=== PATIENT | male | born 1970 | race Caucasian/White ===

== ENCOUNTER 2017-01-29 19:25 | Emergency (ER) | payer BC, OTHER ==
[~2017-01-29] VITALS: Ht 188 cm; Wt 143.3 kg
[2017-01-29 19:28] VITALS: TEMP 36.7; O2SAT 96; Ht 188 cm; Wt 143.3 kg
--- NOTE | 2017-01-29 19:52 | EMERGENCY ROOM VISIT NOTE ---
History Report prepared by Edita: Sherrie Page Under the Supervision of: Dr. Laith Scanlon M.D. 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 The patient currently rates the pain as a 4/10 in severity. The patient states the pain feels like a build of of gas in his abdomen. He states that he has been seen for this pain was diagnosed with acid reflux. He states that the pain will occasional build up to the point where it hurts to touch his epigastric abdomen. The patient states that he also has some back pain. The patient states that occasionally milk decreases his pain. He states that the over the counter medication he took did not help his pain. The patient denies any black or bloody stool. The patient states that he has not history of heart or kidney problems. The patient states that about 1 month ago he quit chewing smokeless tobacco. 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 Review of Systems All systems have been listed, reviewed, and are negative other than those previously mentioned. Please see Additional Medical History Sheet. Past Medical & Surgical Medical Problems: (1) Acid reflux Family History Patient reports no known family medical history. Social History Smoking Status: Light Tobacco Smoker Marital Status: single Occupation Status: employed Current/Historical Medications Scheduled Pantoprazole (Protonix), 40 MG PO DAILY Ranitidine Hcl (Zantac), 150 MG PO BID Scheduled PRN Guaifenesin (Robitussin), 1 DOSE PO DIRECTED PRN for COLD SYMPTOMS Oxycodone/Acetaminophen 5MG/325MG (Percocet 5MG/325MG), 1 TABLET PO Q4H PRN for Pain Allergies Coded Allergies: Acetaminophen (Verified Allergy, Mild, GI SYMPTOMS, 01/29/17) Hydrocodone (Verified Allergy, Mild, GI SYMPTOMS, 01/29/17) Latex (Verified Allergy, Unknown, RASH, 01/29/17) Physical Exam Vital Signs Date Time Temp Pulse Resp B/P Pulse Ox O2 Delivery O2 Flow Rate FiO2 01/29/17 21:33 81 17 156/104 Room Air 01/29/17 20:27 88 01/29/17 19:28 36.7 101 20 170/100 96 Room Air Physical Exam GENERAL: Patient awake, alert, oriented x 3. Patient follows commands. Patient does not appear toxic. Patient is adequately hydrated and well- nourished. SKIN: No erythema, pallor, cyanosis or rash HEENT: Normal head, pupils equal, reactive to light and accommodation. LUNGS: Clear to auscultation. No wheezes, no rales, no rhonchi. HEART: No murmurs. No gallops. No rubs ABDOMEN: obese, soft epigastric tenderness, no rebound no guarding. EXTREMITIES: No signs of trauma or infection. NEUROLOGIC: Cranial nerves II-XII within normal limits. No gross motor sensory function deficits. Medical Decision & Procedures ER Provider Diagnostic Interpretation: X ray results are stated below per my interpretation and the radiologist's interpretation. CHEST 2 VIEWS ROUTINE HISTORY: epigastric pain COMPARISON: None. FINDINGS: The lungs are clear. Cardiac silhouette is normal in size. No pleural effusions. No pneumothorax. IMPRESSION: No acute process. Electronically signed by: Jer Velázquez M.D. 01/29/2017 8:47 PM Dictated Date/Time: 01/29/2017 8:46 PM Laboratory Results 01/29/17 19:40 01/29/17 19:40 Test 01/29/17 19:40 Red Blood Count 5.85 M/uL (4.7-6.1) Mean Corpuscular Volume 93.2 fL (80-100) Mean Corpuscular Hemoglobin 32.0 pg (25-34) Mean Corpuscular Hemoglobin Concent 34.3 g/dl (32-36) RDW Standard Deviation 45.1 fL (36.4-46.3) RDW Coefficient of Variation 13.0 % (11.5-14.5) Mean Platelet Volume 9.8 fL (7.4-10.4) Anion Gap 9.0 mmol/L (3-11) Est Creatinine Clear Calc Drug Dose 114.8 ml/min Estimated GFR () 83.0 Estimated GFR (Non- 71.6 BUN/Creatinine Ratio 11.1 (10-20) Calcium Level 8.8 mg/dl (8.5-10.1) Total Bilirubin 0.5 mg/dl (0.2-1) Aspartate Amino Transf (AST/SGOT) 31 U/L (15-37) Alanine Aminotransferase (ALT/SGPT) 64 U/L (12-78) Alkaline Phosphatase 117 U/L (45-117) Troponin I < 0.015 ng/ml (0-0.045) Total Protein 8.0 gm/dl (6.4-8.2) Albumin 4.2 gm/dl (3.4-5.0) Globulin 3.8 gm/dl (2.5-4.0) Albumin/Globulin Ratio 1.1 (0.9-2) Lipase 276 U/L (73-393) Laboratory results as stated above per my review. Medications Administered Medications (Trade) Dose Ordered Sig/Ismael Route Start Time Stop Time Status Last Admin Dose Admin Al Hydroxide/Mg Hydroxide (Maalox Susp) 30 ml STK-MED ONCE .ROUTE 01/29/17 20:11 01/29/17 20:12 DC 01/29/17 20:15 30 ML Lidocaine HCl (Viscous Lidocaine 2% Soln) 20 ml STK-MED ONCE .ROUTE 01/29/17 20:11 01/29/17 20:12 DC 01/29/17 20:15 20 ML Ranitidine HCl (zANTac TAB) 150 mg NOW ONCE PO 01/29/17 21:30 01/29/17 21:31 DC 01/29/17 21:30 150 MG ECG Indication: abdominal pain Rate (beats per minute): 83 Rhythm: normal sinus Findings: no acute ischemic change, no ectopy ED Course 1936: Past medical records reviewed. The patient was evaluated in room A3. A complete history and physical examination was performed. 1999: Ordered GI Cocktail 24 ml PO. 2107: Upon reevaluation, the patient appeared to have improvement of his symptoms but states that he feels like the pain will begin again. I discussed today's findings with him. He verbalized agreement of the treatment plan. The patient was discharged home. 2129: Ordered Ranitidine HCl 150 mg PO. Medical Decision I considered multiple diagnoses including myocardial infarction, chest wall pain , pericarditis, myocarditis, aortic emergencies, pulmonary embolism, congestive heart failure, GI causes, and other significant cardiopulmonary disorders, and gastritis, peptic/gastric ulcer disease, pancreatitis and gallbladder disease. Multiple labs, EKG and imaging were obtained. Please see above. The patient has no black or bloody stools. He does have epigastric tenderness which may be related to gastritis or an early peptic/gastric ulcer. The patient does drink alcohol but has been abstaining lately. He rarely uses NSAIDs. The patient smokes a cigar. Patient may also have GERD. He did get some initial relief with GI cocktail. The patient is currently on Protonix. I will add Zantac. The patient will see if he is feeling better next few days if not he may need endoscopy. Patient does not have any evidence of a cardiac cause for his pain. Impression Primary Impression: Gastritis Scribe Attestation The scribe's documentation has been prepared under my direction and personally reviewed by me in its entirety. I confirm that the note above accurately reflects all work, treatment, procedures, and medical decision making performed by me. Departure Information Dispostion Home / Self-Care Prescriptions Ranitidine Hcl (ZANTAC) 150 Mg Tab 150 MG PO BID, #30 TAB Prov: Laith Scanlon M.D. 01/29/17 Forms Call Back Authorization, HOME CARE DOCUMENTATION FORM, IMPORTANT VISIT INFORMATION Patient Instructions [facility] Additional Instructions Continue Protonix as prescribed. 150 mg of Zantac twice daily. You may use Mylanta, Maalox or Gaviscon in between the above medications. No alcohol. Follow-up with your family physician within the next 5 days.
[2017-01-29] MEDS ORDERED: RBTUDL5 PO (19:55)
[2017-01-29] MEDS ORDERED: PANT40TA PO (19:55)
[2017-01-29] MEDS ORDERED: OXYC-57 PO (19:55)
[2017-01-29] MEDS ORDERED: GI COCKTAIL PO ONE (20:00)
[2017-01-29 20:02] LABS: HEMATOCRIT 54.5 % (42-52); MEAN CELL VOLUME 93.2 fL (80-100); MEAN CORPUSCULAR HGB CONC 34.3 g/dl (32-36); MEAN PLATELET VOLUME 9.8 fL (7.4-10.4); PLATELET COUNT 223 K/uL (130-400); RED BLOOD COUNT 5.85 M/uL (4.7-6.1); WHITE BLOOD COUNT 8.34 K/uL (4.8-10.8)
[2017-01-29] MEDS ORDERED: LIDOCAINE HCL 2% VISC SOLN 20 ML UDC ONE (20:11)
[2017-01-29] MEDS ORDERED: ALUMINUM/MAGNESIUM SUSP 30 ML UDC ONE (20:11)
[2017-01-29 20:18] LABS: ALT/SGPT 64 U/L (12-78); AST/SGOT 31 U/L (15-37); BLOOD UREA NITROGEN 13 mg/dl (7-18); BUN/CREATININE RATIO 11.1 (10-20); CALCIUM 8.8 mg/dl (8.5-10.1); CARBON DIOXIDE 28 mmol/L (21-32); CHLORIDE 104 mmol/L (98-107); GLUCOSE 101 mg/dl (70-99); POTASSIUM 3.6 mmol/L (3.5-5.1); SODIUM 141 mmol/L (136-145)
[2017-01-29 20:23] LABS: ALB/GLOB RATIO 1.1 (0.9-2); ALKALINE PHOSPHATASE 117 U/L (45-117)
--- NOTE | 2017-01-29 20:49 | DIAGNOSTIC IMAGING REPORT ---
CHEST 2 VIEWS ROUTINE HISTORY: epigastric pain COMPARISON: None. FINDINGS: The lungs are clear. Cardiac silhouette is normal in size. No pleural effusions. No pneumothorax. IMPRESSION: No acute process. Electronically signed by: Jer Velázquez M.D. 01/29/2017 8:47 PM Dictated Date/Time: 01/29/2017 8:46 PM
[2017-01-29] MEDS ORDERED: RANI150T3 PO (21:24)
[2017-01-29] MEDS ORDERED: RANITIDINE HCL 150 MG TAB PO ONE (21:30)
[2017-01-29 21:33] VITALS: BP 156/104; PULSE 81
== END 2017-01-29 21:40 | disposition home or self-care (01) ==
LOC: C.EDB 19:26 → C.EDA 21:40
DX: K29.70 Gastritis, unspecified, without bleeding (principal); K21.9 Gastro-esophageal reflux disease without esophagitis; F17.200 Nicotine dependence, unspecified, uncomplicated; Z79.899 Other long term (current) drug therapy; Z88.6 Allergy status to analgesic agent; Z91.040 Latex allergy status

== ENCOUNTER 2021-10-27 07:48 | Inpatient (IN) ==
--- NOTE | 2021-10-27 08:28 | Emergency Department Note ---
Impression & Plan Lumbar disc herniation with radiculopathy ED Provider Note CHIEF COMPLAINT: Right low back pain radiating into the right leg x2 months HISTORY OF PRESENT ILLNESS: Patient is a 51-year-old male with past medical history significant for hypertension, anxiety, hypothyroidism, GERD, migraine disorder, among other chronic medical problems who presents emergency department for evaluation of increasing right leg weakness, numbness and tingling after suffering a back injury at work in early September. Patient injured his back getting out of the vehicle around 09/09/2021. 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 He apparently has a disc herniation at the L2 level. He was seen by Dr. Li, who suggested he have an evaluation by pain management, he saw Dr. Elmore last week on 10/21/2021, and it was not felt that any type of epidural steroid injection would be beneficial. He did have follow-up with Dr. Li last week, who felt like he was "borderline" for surgery. Patient was instructed on worrisome signs or symptoms which should cause him to present to the emergency department. Patient continues to note increasing weakness in the right leg, primarily in the right quad. He continues to have a constant, aching pain in the midline of the back, more on the right that he rates an 8/10. Acutely new since this morning, the patient states that he has a constant, burning sensation in the anterior right thigh, and numbness that extends from the right knee through the entire right thigh into the buttocks. Numbness is worsening and the burning sensation is new. He is dragging the right leg when he walks. He feels like he might fall. He also has noted a fleeting, sharp, stabbing pain in the groin/genital region, but no saddle anesthesias or bowel or bladder incontinence. He did not contact Dr. Li's office prior to coming to the emergency department today. REVIEW OF SYSTEMS: Review of systems as per HPI. All other systems reviewed were negative. 10 systems reviewed. PMH: Electronic medical records are reviewed and summarized as above/below. See Problem List. Patient is not vaccinated against influenza or Covid. He had the Covid illness in September 2021. SOCIAL HISTORY: Patient lives at home. Employed. [employer]. PHYSICAL EXAM: Vital Signs: Reviewed Nurse's notes. CONSTITUTIONAL: Patient is an obese, fairly well-appearing 51-year-old male who is awake and alert and seated on the edge of the gurney in mild distress due to his stated complaint. There is moderate discomfort with position changes. CARDIOVASCULAR: Regular rate and rhythm. Peripheral pulses easily palpable. RESPIRATORY: Breath sounds equal and clear to auscultation ABDOMEN: Bowel sounds are present. Abdomen is soft, nontender and nondistended. INTEGUMENTARY: No lesions or rash, normal skin turgor. LYMPH: No lymphadenopathy. SPINE: Examination of the patient's back does not demonstrate any ecchymosis, abrasions or outward signs of trauma. No erythema, increased warmth or induration. Patient has midline discomfort to palpation over the low lumbar spine, primarily on the right. There is no pain over the SI joint or the sciatic notch. He has increased pain with range of motion including rotation and flexion. EXTREMITIES: Leg lengths are symmetrical. Negative logroll bilaterally. 5/5 strength dorsi-flexion and plantar flexion of the great toes and ankles bilaterally. Right knee and hip flexion and extension 3/5, compared to 5/5 on the left. Positive right straight leg raise testing. Right patellar and Achilles DTRs are 1+ on the right, compared to 2+ on the left. equal and symm etrical bilaterally. Distal pulses are easily palpable. Diminished sensation to light touch over the right thigh. Calves are soft and nontender bilaterally. EMERGENCY DEPARTMENT COURSE: The patient was seen and assessed as above. Old records were reviewed. There is a pain management consultation with Dr. Elmore that it is in the system that I am able to review, noting lumbar HNP. Patient notes increasing right lower extremity weakness and paresthesia. He was directed by his spine surgeon to come to the emergency department should he develop any worrisome symptoms. I did contact Dr. Li, who is familiar with the patient and agrees that he likely needs urgent surgical intervention. He will admit the patient to his service with plans for the OR tomorrow. Patient was made aware of this. Preoperative laboratory testing including CBC, CMP and urinalysis and a Covid test were obtained, reviewed and are unremarkable. Covid test is negative. Please refer to admission H&P and orders for further information. Differential diagnoses entertained include disc herniation with radiculopathy, acute cord compression, cauda equina syndrome, epidural abscess, epidural hematoma, among others. Past Med/Surg History Medical History Acid reflux resolved off of omeprazole Anxiety Benign essential hypertension Cervical disc disease Fatty liver History of kidney stones Hypothyroidism previously on levothyroxine- since discontinued and labs remain euthyroid, pcp monitoring Migraine Morbid obesity Stomach ulcer Surgical History History of appendectomy History of cholecystectomy History of colonoscopy History of esophagogastroduodenoscopy (EGD) History of tonsillectomy S/P arthroscopy of right shoulder Status post cervical discectomy Full ROM Status post ORIF of fracture of ankle left Family History Father Cancer, Onset Age: 63 prostate cancer Coronary heart disease, Onset Age: 78 stents placed Diabetes Grandfather (Paternal) Cancer Diabetes Uncle Cancer, Onset Age: 60 prostate cancer Uncle , leukemia age 38 Cancer, Onset Age: 37 Leukemia Grandfather (Maternal) Diabetes Lung cancer, Onset Age: 76 Grandmother (Maternal) Diabetes Other Heart disease Hypertension Prostate cancer Stroke Denies family history of Deep vein thrombosis Dyslipidemia Depression Pulmonary embolism Lung disease Social History Smoking Status: Current every day smoker Tobacco Type: E-cigarettes / Vaping Second Hand Exposure: No; Hx Alcohol Use: Yes Alcohol type: hard liquor Hx Substance Use: No Preferred Language: Kiswahili Communication Ability: Effective Pot Lining Supervisor Required: No Beliefs That Will Affect Care: None Current Living Situation: Family Current Living Situation Comment: LIVES WITH SON IN AN APARTMENT current occupational status: employed 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[employer] Feels Safe at Home: Yes Allergies Allergies Allergy/AdvReac Type Severity Reaction Status Date / Time latex Allergy Mild RASH Verified 10/27/21 09:49 hydrocodone AdvReac Mild GI SYMPTOMS Verified 10/27/21 09:49 Home Meds Home Medications Medication Instructions Recorded Confirmed olmesartan 40 mg tablet 40 mg PO QAM 10/27/21 10/27/21 Results & Data (ED) Vital Signs Vital Signs - 24 hr 10/27/21 07:52 Temperature 36.0 C L Temperature Source Temporal Artery Scan Pulse Rate 90 Respiratory Rate 20 Respiratory Effort / Characteristics Non-Labored Spontaneous Respiratory Depth Normal Respiratory Pattern Regular Blood Pressure 147/103 H Blood Pressure Mean 117 Pulse Oximetry 97 Oxygen Delivery Method Room Air Sepsis Recent Fever Within 48 Hours No Sepsis New/Unexplained Change in Mental Status No Sepsis Action Taken by Nursing No Action Required Home Medications Current Medication List: was personally reviewed by me Laboratory Data Attestation: I reviewed the patient's lab results. Result diagrams: 10/27/21 Unknown 10/27/21 Unknown Lab Results 10/27/21 10/27/21 10/27/21 Range/Units 10:19 Unknown Unknown WBC 6.44 (4.8-10.8) K/uL RBC 5.11 (4.7-6.1) M/uL Hgb 16.5 (14.0-18.0) g/dL Hct 50.1 (42-52) % MCV 98.0 (80-100) fL MCH 32.3 (25-34) pg MCHC 32.9 (32-36) g/dL RDW Std Deviation 53.1 H (36.4-46.3) fL RDW Coeff of Rose Marie 14.7 H (11.5-14.5) % Plt Count 282 (130-400) K/uL MPV 9.5 (7.4-10.4) fL Immature Gran % (Auto) 0.3 % Neut % (Auto) 66.1 % Lymph % (Auto) 25.2 % [place] % (Auto) 6.7 % Eos % (Auto) 1.2 % Baso % (Auto) 0.5 % Neut # (Auto) 4.26 (1.4-6.5) K/uL Lymph # (Auto) 1.62 (1.2-3.4) K/uL [place] # (Auto) 0.43 (0.11-0.59) K/uL Eos # (Auto) 0.08 (0-0.5) K/uL Baso # (Auto) 0.03 (0-0.2) K/uL Immature Gran # (Auto) 0.02 (0.00-0.02) K/uL Sodium 138 (136-145) mmol/L Potassium (3.5-5.1) mmol/L Chloride 102 (98-107) mmol/L Carbon Dioxide 28 (21-32) mmol/L Anion Gap 8 (3-11) BUN 14 (6-23) mg/dl Creatinine 0.90 (0.6-1.4) mg/dl Est Cr Clr Drug Dosing 151.9 ml/min Est GFR ( Amer) 113.4 ml/min Est GFR (Non-Af Amer) 97.9 ml/min BUN/Creatinine Ratio 15.6 (10-20) Glucose 120 H (70-99(Fasting)) mg/dl Calcium 8.7 (8.5-10.1) mg/dl Total Bilirubin 0.6 (0.2-1.0) mg/dl AST (13-39) U/L ALT 44 (7-52) U/L Alkaline Phosphatase 78 (34-104) U/L Total Protein 7.3 (6.0-8.3) gm/dl Albumin 4.1 (3.4-5.0) gm/dl Globulin 3.2 (2.5-4.0) gm/dl Albumin/Globulin Ratio 1.3 (0.9-2) Urine Color Yellow Urine Appearance Clear (Clear) Urine pH 5.5 (4.5-7.5) Ur Specific [place] 1.023 (1.000-1.030) Urine Protein Negative (Negative) Urine Glucose (UA) Negative (Negative) Urine Ketones Trace H (Negative) Urine Blood Negative (Negative) Urine Nitrite Negative (Negative) Urine Bilirubin Negative (Negative) Urine Urobilinogen Negative (Negative) Ur Leukocyte Esterase Negative (Negative) SARS-CoV-2, RNA, NAAT (NEGATIVE) 10/27/21 Range/Units Unknown WBC (4.8-10.8) K/uL RBC (4.7-6.1) M/uL Hgb (14.0-18.0) g/dL Hct (42-52) % MCV (80-100) fL MCH (25-34) pg MCHC (32-36) g/dL RDW Std Deviation (36.4-46.3) fL RDW Coeff of Rose Marie (11.5-14.5) % Plt Count (130-400) K/uL MPV (7.4-10.4) fL Immature Gran % (Auto) % Neut % (Auto) % Lymph % (Auto) % [place] % (Auto) % Eos % (Auto) % Baso % (Auto) % Neut # (Auto) (1.4-6.5) K/uL Lymph # (Auto) (1.2-3.4) K/uL [place] # (Auto) (0.11-0.59) K/uL Eos # (Auto) (0-0.5) K/uL Baso # (Auto) (0-0.2) K/uL Immature Gran # (Auto) (0.00-0.02) K/uL Sodium (136-145) mmol/L Potassium (3.5-5.1) mmol/L Chloride (98-107) mmol/L Carbon Dioxide (21-32) mmol/L Anion Gap (3-11) BUN (6-23) mg/dl Creatinine (0.6-1.4) mg/dl Est Cr Clr Drug Dosing ml/min Est GFR ( Amer) ml/min Est GFR (Non-Af Amer) ml/min BUN/Creatinine Ratio (10-20) Glucose (70-99(Fasting)) mg/dl Calcium (8.5-10.1) mg/dl Total Bilirubin (0.2-1.0) mg/dl AST (13-39) U/L ALT (7-52) U/L Alkaline Phosphatase (34-104) U/L Total Protein (6.0-8.3) gm/dl Albumin (3.4-5.0) gm/dl Globulin (2.5-4.0) gm/dl Albumin/Globulin Ratio (0.9-2) Urine Color Urine Appearance (Clear) Urine pH (4.5-7.5) Ur Specific [place] (1.000-1.030) Urine Protein (Negative) Urine Glucose (UA) (Negative) Urine Ketones (Negative) Urine Blood (Negative) Urine Nitrite (Negative) Urine Bilirubin (Negative) Urine Urobilinogen (Negative) Ur Leukocyte Esterase (Negative) SARS-CoV-2, RNA, NAAT NEGATIVE (NEGATIVE) Discharge Plan Visit Data Chief Complaint: Leg Injury/Pain Stated Complaint: LOWER BACK PAIN, RT THIGH PAIN AND NUMBNESS ED Provider: Roe Rogers ED Midlevel Provider: Heriberto Crain Discharge Problem: Lumbar disc herniation with radiculopathy Patient Disposition: Being Evaluated by Surgeon Forms Stand Alone Forms: [facility] Prescriptions Prescriptions: No Action olmesartan 40 mg tablet 40 mg PO QAM RF: 0 Referrals Referrals: Loren Holm CRNP [Primary Care Provider] -
[2021-10-27 09:03] LABS: Basophils # (auto) 0.03 K/uL (0-0.2); Basophils % (auto) 0.5 %; Eosinophils # (auto) 0.08 K/uL (0-0.5); Eosinophils % (auto) 1.2 %; Hematocrit (blood only) 50.1 % (42-52); Hemoglobin 16.5 g/dL (14.0-18.0); Immature Granulocytes # (auto) 0.02 K/uL (0.00-0.02); Immature Granulocytes % (auto) 0.3 %; Lymphocytes # (auto) 1.62 K/uL (1.2-3.4); Lymphocytes % (auto) 25.2 %; Mean Corpuscular Hemoglobin 32.3 pg (25-34); Mean Corpuscular Hgb Conc 32.9 g/dL (32-36); Mean Platelet Volume 9.5 fL (7.4-10.4); Monocytes # (auto) 0.43 K/uL (0.11-0.59); Monocytes % (auto) 6.7 %; Neutrophils # (auto) 4.26 K/uL (1.4-6.5); Neutrophils % (auto) 66.1 %; Platelet Count 282 K/uL (130-400); RDW Coefficient of Variation 14.7 % (11.5-14.5); RDW Standard Deviation 53.1 fL (36.4-46.3); Red Blood Count 5.11 M/uL (4.7-6.1); White Blood Count 6.44 K/uL (4.8-10.8)
--- NOTE | 2021-10-27 09:24 | History & Physical Report ---
Date of Service October 27, 2021 Assessment & Plan (1) Lumbar disc herniation with radiculopathy: Plan: Assessment foraminal disc herniation with progressive neuro deficit L2-L3. Plan at this time he is failed to improve despite conservative measures his progressive neuro deficit and recommending urgent lumbar decompression fusion L2-L3. He would require complete facetectomy to adequately decompress the exiting nerve root and safely retrieve the disc herniation. This would render him unstable subsequently requiring stabilization. Risk benefits pros cons alternatives were outlined in detail. We will make him n.p.o. after midnight plan for surgery tomorrow. History of Present Illness Chief Complaint: Right leg pain and weakness Primary Care Provider: GARY Gallo This is a 51-year-old male well-known to me that is noting a significant steady decline in his ability to ambulate and function of the right quadricep. He was seen my office several weeks ago diagnosed with a far lateral foraminal disc herniation L2-L3. We did attempt a consultation with interventional pain management. However in light of the disc herniation and foraminal compression he was felt not to be a candidate for injection therapy. A course of oral steroids provided very little relief. He now notes continued progressive deficit to the right quadricep with difficulty ambulating ascending and descending stairs. There is concomitant severe radiculopathy in association with this. Left lower extremity is asymptomatic. Allergies Allergy/AdvReac Type Severity Reaction Status Date / Time latex Allergy Mild RASH Verified 06/24/21 09:59 hydrocodone AdvReac Mild GI SYMPTOMS Verified 06/24/21 09:59 Home Medications Medication Instructions Recorded Confirmed Type olmesartan 40 mg tablet 40 mg PO DAILY #90 tab 06/12/21 06/29/21 Rx folic acid 400 mcg tablet 0.4 mg PO DAILY #90 tab 06/29/21 06/29/21 Rx meclizine 25 mg tablet 25 mg PO TID #30 tab 06/29/21 06/29/21 Rx nicotine 21 mg/24 hr daily 1 patch TRANSDERMAL Q24H #28 ea 06/29/21 06/29/21 Rx transdermal patch pantoprazole 20 mg tablet,delayed 20 mg PO DAILY #90 tab 06/29/21 06/29/21 Rx release (Protonix) thiamine HCl (vitamin B1) 100 mg 100 mg PO DAILY #90 tab 06/29/21 06/29/21 Rx tablet albuterol sulfate 90 mcg/actuation 2 puff INHALATION Q6H PRN #8.5 g 09/21/21 09/21/21 Rx aerosol inhaler (Ventolin HFA) prednisone 10 mg tablet See Rx Instructions .ROUTE 09/21/21 09/21/21 Rx .COMPLEX #21 tab Past Med/Surg History Medical History Acid reflux resolved off of omeprazole Anxiety Benign essential hypertension Cervical disc disease Fatty liver History of kidney stones Hypothyroidism previously on levothyroxine- since discontinued and labs remain euthyroid, pcp monitoring Migraine Morbid obesity Stomach ulcer Surgical History History of appendectomy History of cholecystectomy History of colonoscopy History of esophagogastroduodenoscopy (EGD) History of tonsillectomy S/P arthroscopy of right shoulder Status post cervical discectomy Full ROM Status post ORIF of fracture of ankle left Family History Father Cancer, Onset Age: 63 prostate cancer Coronary heart disease, Onset Age: 78 stents placed Diabetes Grandfather (Paternal) Cancer Diabetes Uncle Cancer, Onset Age: 60 prostate cancer Uncle , leukemia age 38 Cancer, Onset Age: 37 Leukemia Grandfather (Maternal) Diabetes Lung cancer, Onset Age: 76 Grandmother (Maternal) Diabetes Other Heart disease Hypertension Prostate cancer Stroke Denies family history of Deep vein thrombosis Dyslipidemia Depression Pulmonary embolism Lung disease Social History Smoking Status: Current every day smoker Tobacco Type: E-cigarettes / Vaping Second Hand Exposure: No; Hx Alcohol Use: Yes Alcohol type: hard liquor Hx Substance Use: No Preferred Language: Indian Communication Ability: Effective Switch Coupler Required: No Beliefs That Will Affect Care: None Current Living Situation: Family Current Living Situation Comment: LIVES WITH SON IN AN APARTMENT current occupational status: employed 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 He is able to ambulate with assistance. He does demonstrate a 4-/5 right quadriceps compared to 5 or 5 on the left. There is sensory deficits on the right compared to left. Deep tendon reflexes are absent. He has plus out of 5 bilateral plantar flexion dorsiflexion. Results & Data ([facility]) Vital Signs (Past 12 Hours) Vital Signs Temp Pulse Resp BP Pulse Ox 10/27/21 07:52 36.0 C L 90 20 147/103 H 97 Code Status & VTE Plan VTE Prophylaxis Plan VTE Prophylaxis will be ordered: Yes
[2021-10-27 10:12] LABS: Albumin Globulin Ratio 1.3 (0.9-2); Albumin Level 4.1 gm/dl (3.4-5.0); BUN Creatinine Ratio 15.6 (10-20); Bilirubin,Total 0.6 mg/dl (0.2-1.0); Calcium 8.7 mg/dl (8.5-10.1); Creatinine Clr Calc Pharmacy 151.9 ml/min; Est GFR (African American) 113.4 ml/min; Est GFR (Non-African American) 97.9 ml/min; Globulin 3.2 gm/dl (2.5-4.0); Total Protein 7.3 gm/dl (6.0-8.3)
[2021-10-27 10:29] LABS: Appearance Urine Clear (Clear); Bilirubin Urine Negative (Negative); Blood Urine Negative (Negative); Color Urine Yellow; Glucose Urine UA Negative (Negative); Ketones Urine Trace (Negative); Leukocyte Esterase Urine Negative (Negative); Nitrite Urine Negative (Negative); Protein Urine Negative (Negative); Specific Gravity Urine 1.023 (1.000-1.030); Urobilinogen Urine Negative (Negative); pH Urine 5.5 (4.5-7.5)
[2021-10-27] MEDS ORDERED: oxyCODONE HCL IR 5 MG TAB (IMMEDIATE RELEASE) PO PRN (12:37)
[2021-10-27] MEDS ORDERED: ONDANSETRON 4 MG OD TAB PO PRN (12:37)
[2021-10-27] MEDS ORDERED: LORazepam 0.5 MG TAB PO PRN (12:37)
[2021-10-27] MEDS ORDERED: ONDANSETRON INJ 2 MG/ML 2 ML VIAL IV PRN (12:37)
[2021-10-27] MEDS ORDERED: ACETAMINOPHEN 500 MG TAB PO PRN (12:37)
[2021-10-27] MEDS ORDERED: NALOXONE HCL 0.4 MG/1 ML VIAL/CARP IV PRN (12:37)
[2021-10-27] MEDS ORDERED: HYDROmorphone INJ 0.5 MG/0.5 ML SYR IV PRN (12:37)
[2021-10-27] MEDS ORDERED: PROMETHAZINE HCL 12.5 MG in SODIUM CHLORIDE 0.9% 50 ML IV PRN (12:37)
[2021-10-27] MEDS ORDERED: LORazepam 0.5 MG/1 ML VIAL IV PRN (12:37)
[2021-10-27] MEDS ORDERED: ACETAMINOPHEN 1,000 MG/100 ML VIAL IV PRN (12:37)
[2021-10-27] MEDS ORDERED: MoRPHine SULFATE 2 MG/ML CARP IV PRN (12:37)
[2021-10-27] MEDS ORDERED: ALBUTEROL HFA 8 GM INHALER INH PRN (12:37)
[2021-10-27] MEDS ORDERED: METOCLOPRAMIDE HCL INJ 5 MG/ML 2 ML VIAL IV PRN (12:37)
--- NOTE | 2021-10-27 13:16 | Hospitalist Consultation ---
Date of Consultation October 27, 2021 Assessment & Plan (1) Acid reflux: Reports as mild, is not on medication at home - Will add Famotidine 10mg IV daily until postoperative course completed - If he will remain on steroid post operative- continue (2) Migraine: No abortive medicines at (3) Benign essential hypertension: Controlled on Olmesartan - ECHO 04/21- EF 60-65% No RWMA, normal valves- reported - Low cardiac risk - Hold ARB follow renal function (4) Chronic fatigue: Chronic ftigue in morning and throughout day - did not follow up on sleep study as above - Follow through postoperative course- consider adding CPAP if occluding airway with sedation (5) Chewing tobacco nicotine dependence: Nicotene patch (6) Lumbar disc herniation with radiculopathy: Pain medication per Primary service - Rescue Narcan ordered and apporpriate - Pre-operative care per primary service - Chemoprophylaxis per primary service - IVF and diet per primary service - ABX per primary service (7) Anxiety: Ativan ordered- IV and PO available - transition to PO only tomorrow unless he is nauseated and unable to take PO History of Present Illness Reason for Consultation: Medical management Requesting Physician: Dr. Li Attending Physician: Isma Li, History of Present Illness 51 YOMJ with past medical history of: HTN, Obesity, Anxiety, Chronic fatigue, dyspnea, chronic back pain with radiculopathy, GERD, and Migraine. Patient comes in today for progression of his back pain with increase in radicular symptoms with weakness. He is planned of lumbar decompression and fusion to be completed by Dr. Li tomorrow. He is NPO after midnight. Hospitalist service was consulted for medical management/evaluation preoperative. 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 His numbness and weakness progressed this morning to where he had trouble putting weight on his leg and getting it to function to help him walk. Currently his pain is controlled. Medically patient carries diagnosis of HTN, no history of CVA or chest pain. He reports himself as pretty active, as he is up and down in equipment all day and then appears to do some other general justyn work to where he is lifting and moving tools and supplies. He is also able to go up and down 2 or more flights of stairs without any complaints of chest pain or dyspnea. The patient had an episode of dyspnea over the summer that was worked up by his PCP to include an ECHO, ECG and plan for sleep study. His dyspnea self resolved, and he did not follow up with pulmonary sleep study secondary to cost as well as he was seeing many physicians during that time. He does still endorse morning time fatigue, but denies any waking up from snoring or dyspneic, and he does not fall asleep or doze off when sitting. His had recent colonoscopy performed as well. He has elevated liver enzymes and fatty liver disease, will repeat his liver enzymes in the morning as AST was not run secondary to hemolysis but his ALT, AlkPo4, and bili were normal. He does not carry the diagnosis of DM. He has had multiple operations and exposure to anesthetics as well with no complications reported or prolonged/severe nausea or vomiting afterwards. He does endorse smokeless tobacco use and has nicotene patch ordered. Alcohol use is reported as minimal 1-2 drinks a week. He has gone multiple days without a drink and reports he has never had any symptoms of withdrawl or need to drink alcohol. Recommendations: Hold ARB, can likely restart 24 hours post-op with stable renal function, NPO with LR at 75ml per hour already ordered, SCDS already ordered for VTE prophylaxis - ECG now for evaluation - CXR pre-operative evaluation - Hold ARB in morning of surgery - Labs in am - CPAP if needed postoperative phase with increase sedation- notify hospitalist team if low SPo2/occlusion/or apneas in PACU His revised Dhiraj cardiac risk for estimated risk of adverse outcome with non- cardiac surgery is LOW at 0.9% rate of MT, pulmonary edema, Vfib/cardiac arrest or heart block- History and Physical performed by primary orthopaedics and reviewed. Allergies Allergy/AdvReac Type Severity Reaction Status Date / Time latex Allergy Mild RASH Verified 10/27/21 09:49 hydrocodone AdvReac Mild GI SYMPTOMS Verified 10/27/21 09:49 Home Medications Medication Instructions Recorded Confirmed Type olmesartan 40 mg tablet 40 mg PO QAM 10/27/21 10/27/21 History Patient History Medical History Acid reflux resolved off of omeprazole Anxiety Benign essential hypertension Cervical disc disease Fatty liver History of kidney stones Hypothyroidism previously on levothyroxine- since discontinued and labs remain euthyroid, pcp monitoring Migraine Morbid obesity Stomach ulcer Surgical History History of appendectomy History of cholecystectomy History of colonoscopy History of esophagogastroduodenoscopy (EGD) History of tonsillectomy S/P arthroscopy of right shoulder Status post cervical discectomy Full ROM Status post ORIF of fracture of ankle left Family History Father Cancer, Onset Age: 63 prostate cancer Coronary heart disease, Onset Age: 78 stents placed Diabetes Grandfather (Paternal) Cancer Diabetes Uncle Cancer, Onset Age: 60 prostate cancer Uncle , leukemia age 38 Cancer, Onset Age: 37 Leukemia Grandfather (Maternal) Diabetes Lung cancer, Onset Age: 76 Grandmother (Maternal) Diabetes Other Heart disease Hypertension Prostate cancer Stroke Denies family history of Deep vein thrombosis Dyslipidemia Depression Pulmonary embolism Lung disease Social History Smoking Status: Never smoker Tobacco Type: E-cigarettes / Vaping Second Hand Exposure: No; Do You Dip or Chew Tobacco: Yes; Tobacco Cessation Education Requested by Patient: No Hx Alcohol Use: Yes Alcohol type: hard liquor Hx Substance Use: No Preferred Language: Pakistani Communication Ability: Effective 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 Beliefs That Will Affect Care: None Current Living Situation: Alone Current Living Situation Comment: LIVES WITH SON IN AN APARTMENT current occupational status: employed 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 [employer] Other Information That Helps Us Care for You: No Feels Safe at Home: Yes Safety Concerns: Feels Safe At This Time Assistive Devices: None Review of Systems Review of Systems: REVIEW OF SYSTEMS: Constitutional: No fever, sweats or chills Eyes: No diplopia, no worsening or blurred vision ENT: normal hearing, no trouble swallowing Respiratory: No cough, sputum, dyspnea at rest or on exertion Cardiovascular: No chest pain, tightness or palpitations Abdomen: No pain, nausea, vomiting, diarrhea or constipation Musculoskeletal: (+) back and leg joint pain, NO calf pain, swelling Neurologic: (+) weakness, numbness/tingling, or balance problems Psychiatric: No anxiety or depression Skin: No rash or itch Physical Exam Physical Exam: PHYSICAL EXAM: General: awake, alert, no apparent distress Head: Normocephalic, atraumatic ENT: PERRL, EOMI, no pharyngeal exudate, mucous membranes moist Neuro: AAO x 3, speech clear and appropriate, strength intact bilaterally 5/5 upper extremity and left lower extremity, 4/5 on right lower extremity, normal reflexes and able to fire quadriceps. Burning pain to right lateral leg that extends to calf, numbness at right glut and upper thigh, but sensation is present throughout all dermatomes. Chest: equal rise and fall of the chest, no accessory muscle use, no heaves or thrills, Clear to auscultation, on room air, Cardiac: Regular rate and rhythm, S1S2 skin warm dry, cap refill <3 seconds, peripheral pulses +2 no JVD, no murmur, no JVD, no edema GI: NABS x 4 quadrants, soft, nontender to palpation, no rebound, guarding or tenderness : Spontaneously voiding, no pain, no CVA tenderness, Extremities: Normal inspection, no peripheral edema or erythema, calfs nontender to palpation Psych: Normal mood and affect Skin: no rash or erythema Results & Data Results & Data ([facility]) Vital Signs (Past 12 Hours) Vital Signs Temp Pulse Pulse Pulse Resp BP BP 10/27/21 12:41 36.8 C 88 16 137/84 10/27/21 11:47 74 18 123/83 10/27/21 11:00 123/83 10/27/21 09:49 75 18 154/97 H 10/27/21 07:52 36.0 C L 90 20 147/103 H Pulse Ox 10/27/21 12:41 95 10/27/21 11:47 98 10/27/21 11:00 10/27/21 09:49 98 10/27/21 07:52 97 Laboratory Results Abnormal lab results 10/27/21 10/27/21 10/27/21 Range/Units 10:19 Unknown Unknown RDW Std Deviation 53.1 H (36.4-46.3) fL RDW Coeff of Rose Marie 14.7 H (11.5-14.5) % Glucose 120 H (70-99(Fasting)) mg/dl Urine Ketones Trace H (Negative) Diagnostic Findings Chest X-Ray 10/27/21 13:15 XR chest 1V portable HISTORY: 51 years-old Male pre-operative evaluation preoperative exam. No acute chest complaints. COMPARISON: 02/26/2020 TECHNIQUE: Portable AP view of the chest FINDINGS: Cardiomediastinal and hilar silhouettes are unchanged. There is no pneumothorax, pleural effusion, airspace consolidation or overt pulmonary edema. Bones of the chest appear grossly intact. Cervical spinal fusion hardware. IMPRESSION: No acute process. ACT 112: Negative or not required by law. The above report was generated using voice recognition software. It may contain grammatical, syntax or spelling errors. Electronically signed by: Chato Donald M.D. 10/27/2021 1:36 PM ECG Additional Comments: Ordered- Pending PG Care Time/CCT Total # of Minutes Spent Total Time Spent with Patient: Total time spent is greater than 50% in coordination of care (as documented) at patient's floor/unit and/or counseling patient: Coding Level of Care Code 89093 Office/OBS Consult Lvl 3 Diagnoses Acid reflux K21.9 Migraine G43.909 Benign essential hypertension I10 Chronic fatigue R53.82 Chewing tobacco nicotine dependence F17.220 Lumbar disc herniation with radiculopathy M51.16 Anxiety F41.9
--- NOTE | 2021-10-27 13:37 | XRay Report ---
XR chest 1V portable HISTORY: 51 years-old Male pre-operative evaluation preoperative exam. No acute chest complaints. COMPARISON: 02/26/2020 TECHNIQUE: Portable AP view of the chest FINDINGS: Cardiomediastinal and hilar silhouettes are unchanged. There is no pneumothorax, pleural effusion, ai rspace consolidation or overt pulmonary edema. Bones of the chest appear grossly intact. Cervical spi nal fusion hardware. IMPRESSION: No acute process. ACT 112: Negative or not required by law. The above report was generated using voice recognition software. It may contain grammatical, syntax o r spelling errors. Electronically signed by: Chato Donald M.D. 10/27/2021 1:36 PM
[2021-10-27] MEDS: LACTATED RINGER'S 1,000 ML IV SCH (13:48)
[2021-10-27] MEDS ORDERED: FAMOTIDINE 10 MG in SYRINGE 3 ML IV SCH (14:00)
[2021-10-27] MEDS ORDERED: MECLIZINE HCL 25MG HOME PACK PO SCH (14:00)
[2021-10-27] MEDS: NICOTINE 21 MG/24 HR TDSY TD SCH (15:13)
[2021-10-27] MEDS: FAMOTIDINE 20 MG in SYRINGE 3 ML IV SCH (15:13)
[2021-10-27] MEDS: traMADol HCL 50 MG TABLET PO PRN ×2 (15:16→20:56)
[2021-10-27] MEDS ORDERED: HYDROmorphone INJ 1 MG/ML SYRINGE IV PRN (16:17)
--- NOTE | 2021-10-27 18:02 | Electrocardiogram Report ---
Test Reason : Blood Pressure : / mmHG Vent. Rate : 083 BPM Atrial Rate : 083 BPM P-R Int : 146 ms QRS Dur : 090 ms QT Int : 370 ms P-R-T Axes : 039 052 052 degrees QTc Int : 434 ms Normal sinus rhythm Low voltage QRS Borderline ECG When compared with ECG of 29-JAN-2017 20:18, No significant change was found Confirmed by Philip Altamirano ([id number]) on 10/27/2021 6:01:57 PM Referred By: REFERRED SELF Confirmed By:Juan F Altamirano
[2021-10-28] MEDS: LACTATED RINGER'S 1,000 ML IV SCH ×4 (01:01→23:24)
[2021-10-28 06:26] LABS: Basophils # (auto) 0.04 K/uL (0-0.2); Basophils % (auto) 0.6 %; Eosinophils # (auto) 0.11 K/uL (0-0.5); Eosinophils % (auto) 1.6 %; Hematocrit (blood only) 47.5 % (42-52); Hemoglobin 15.2 g/dL (14.0-18.0); Immature Granulocytes # (auto) 0.03 K/uL (0.00-0.02); Immature Granulocytes % (auto) 0.4 %; Lymphocytes # (auto) 2.49 K/uL (1.2-3.4); Mean Platelet Volume 9.6 fL (7.4-10.4); Monocytes # (auto) 0.67 K/uL (0.11-0.59); Monocytes % (auto) 9.7 %; Neutrophils # (auto) 3.58 K/uL (1.4-6.5); Neutrophils % (auto) 51.7 %; Platelet Count 229 K/uL (130-400); RDW Coefficient of Variation 14.9 % (11.5-14.5); RDW Standard Deviation 54.4 fL (36.4-46.3); Red Blood Count 4.75 M/uL (4.7-6.1); White Blood Count 6.92 K/uL (4.8-10.8)
[2021-10-28 06:43] LABS: Albumin Globulin Ratio 1.4 (0.9-2); Albumin Level 3.6 gm/dl (3.4-5.0); BUN Creatinine Ratio 13.3 (10-20); Bilirubin,Total 0.7 mg/dl (0.2-1.0); Calcium 8.2 mg/dl (8.5-10.1); Creatinine Clr Calc Pharmacy 113.8 ml/min; Est GFR (African American) 80.1 ml/min; Est GFR (Non-African American) 69.1 ml/min; Globulin 2.5 gm/dl (2.5-4.0); Potassium 4.3 mmol/L (3.5-5.1); Total Protein 6.1 gm/dl (6.0-8.3)
[2021-10-28] MEDS: FOLIC ACID 400 MCG TAB PO SCH (08:22)
[2021-10-28] MEDS: NICOTINE 21 MG/24 HR TDSY TD SCH (08:23)
[2021-10-28] MEDS ORDERED: OLMESARTAN MEDOXOMIL 40 MG TAB PO SCH (09:00)
[2021-10-28] MEDS ORDERED: PANTOprazole 40 MG TAB PO SCH (09:00)
[2021-10-28] MEDS ORDERED: THIAMINE HCL 100 MG TAB PO SCH (09:00)
[2021-10-28] MEDS: FAMOTIDINE 20 MG in SYRINGE 3 ML IV SCH (09:05)
--- NOTE | 2021-10-28 12:10 | History & Physical Bridge Note ---
Date of Service October 28, 2021 History & Physical Bridge Note I have examined the patient, reviewed the History & Physical and in the interval since the performance of the History & Physical I have noted the following changes of clinical significance: I have seen the patient earlier today. He continues to have significant right leg radiculopathy with quadricep wrecking weightbearing ambulation. This has been progressive in nature. In light of his steady neurologic decline I am recommending emergent decompression fusion in order to at least halt the strength deficit and with time provide improvement. He is a very large man and would have considerable limitations in ability to ambulate with even modest strength deficit.
[2021-10-28] MEDS ORDERED: MIDAZOLAM HCL 1 MG/ML 2ML VIAL ONE (12:42)
[2021-10-28] MEDS ORDERED: fentaNYL citrate 100 MCG/2 ML VIAL ONE ×2 (12:42)
[2021-10-28] MEDS ORDERED: DEXAMETHASONE SOD INJ 4 MG/ML VIAL ONE (13:30)
[2021-10-28] MEDS ORDERED: LIDOCAINE 2% 2 ML VIAL/AMP(20MG/ML) INFIL ONE (13:30)
[2021-10-28] MEDS ORDERED: NEOSTIGMINE METHYLSULFATE 1 MG/ML 10ML VIAL ONE (13:30)
[2021-10-28] MEDS ORDERED: GLYCOPYRROLATE 0.2 MG/ML VIAL ONE (13:30)
[2021-10-28] MEDS ORDERED: PROPOFOL IV EMULSION 10 MG/ML 20 ML VIAL IV ONE (13:30)
[2021-10-28] MEDS ORDERED: ONDANSETRON INJ 2 MG/ML 2 ML VIAL ONE (13:30)
[2021-10-28] MEDS ORDERED: LARYING-O-JET KIT (LTA) ONE (13:30)
[2021-10-28] MEDS ORDERED: ROCURONIUM BROMIDE 10 MG/ML 5 ML VIAL IV ONE ×2 (13:30→15:30)
[2021-10-28] MEDS ORDERED: PHENYLEPHRINE HCL 10 MG/ML VIAL ONE (13:30)
[2021-10-28] MEDS ORDERED: ePHEDrine sulfate 50 MG/ML AMP IV PRN (13:45)
[2021-10-28] MEDS ORDERED: ONDANSETRON INJ 2 MG/ML 2 ML VIAL IV PRN ×2 (13:45→16:50)
[2021-10-28] MEDS ORDERED: PHENYLEPHRINE 100MCG/ML 5ML SYR IV PRN (13:45)
[2021-10-28] MEDS ORDERED: LABETALOL HCL IV 5 MG/ML 20ML IV PRN (13:45)
[2021-10-28] MEDS ORDERED: HYDROmorphone INJ 1 MG/ML SYRINGE IV PRN (13:45)
[2021-10-28] MEDS ORDERED: ATROPINE SULFATE 0.1 MG/ML 10ML SYR IV PRN (13:45)
--- NOTE | 2021-10-28 13:52 | Anesthesiology Consultation ---
Date of Service October 28, 2021 Assessment & Plan (1) Encounter for pre-operative examination: Chart Review Chart Review: Acceptable Risk for Surgery and Patient NOT seen in Pre Admission Testing Consults Requested none History Surgery Operation Date: 10/28/21 07:00 Proposed Procedures p L2-L3 Decompression Fusion - Isma Li DO Height/Weight Height: 6 ft 1 in Weight: 159.4 kg Allergies Allergy/AdvReac Type Severity Reaction Status Date / Time latex Allergy Mild RASH Verified 10/27/21 09:49 hydrocodone AdvReac Mild GI SYMPTOMS Verified 10/27/21 09:49 Medications Home Medications Medication Instructions Recorded Confirmed Last Taken olmesartan 40 mg tablet 40 mg PO QAM 10/27/21 10/27/21 10/27/21 Active Medications Generic Name Dose Route Start Last Admin Trade Name Freq PRN Reason Stop Dose Admin Folic Acid 400 mcg 10/28/21 09:00 10/28/21 08:22 Folic Acid 400 Mcg Tab PO 11/27/21 08:59 Not Given DAILY MAGDALENA Lactated Ringer's 1,000 mls @ 75 mls/hr 10/27/21 12:37 10/28/21 05:19 Lr IV 11/26/21 12:36 75 mls/hr .[id number] MAGDALENA Infusion Famotidine 20 mg/ Syringe 5 mls @ 2.5 mls/min 10/27/21 14:30 10/28/21 09:05 IV 11/26/21 14:29 2.5 mls/min DAILY MAGDALENA Administration Miscellaneous 1 ea 10/27/21 14:29 10/28/21 08:22 Remove Nicoderm Patch N/A 11/26/21 14:28 Not Given [id number] MAGDALENA Nicotine 21 mg 10/27/21 14:30 10/28/21 08:23 Nicotine 21 Mg/24 Hr Tdsy TD 11/26/21 14:29 Not Given DAILY MAGDALENA Tramadol HCl 50 - 100 mg 10/27/21 12:37 10/27/21 20:56 Tramadol Hcl 50 Mg Tablet PO 11/26/21 12:36 100 mg Q4H PRN Administration Moderate-Severe pain & Pre PT NPO Date Last Intake of Fluids: 10/27/21 Time Last Intake of Fluids: 23:59 Date Last Intake of Solids: 10/27/21 Time Last Intake of Solids: 18:00 Past Medical History Medical History (Updated 10/28/21 @ 13:52 by Jer Looney MD) Acid reflux resolved off of omeprazole Anxiety Benign essential hypertension Cervical disc disease Fatty liver History of kidney stones Hypertension Hypothyroidism previously on levothyroxine- since discontinued and labs remain euthyroid, pcp monitoring Migraine Morbid obesity Stomach ulcer Past Family History Family History Father Cancer, Onset Age: 63 prostate cancer Coronary heart disease, Onset Age: 78 stents placed Diabetes Grandfather (Paternal) Cancer Diabetes Uncle Cancer, Onset Age: 60 prostate cancer Uncle , leukemia age 38 Cancer, Onset Age: 37 Leukemia Grandfather (Maternal) Diabetes Lung cancer, Onset Age: 76 Grandmother (Maternal) Diabetes Other Heart disease Hypertension Prostate cancer Stroke Denies family history of Deep vein thrombosis Dyslipidemia Depression Pulmonary embolism Lung disease Past Surgical History Surgical History History of appendectomy History of cholecystectomy History of colonoscopy History of esophagogastroduodenoscopy (EGD) History of tonsillectomy S/P arthroscopy of right shoulder Status post cervical discectomy Full ROM Status post ORIF of fracture of ankle left Social History Smoking Status: Never smoker tobacco type: smokeless tobacco Do You Dip or Chew Tobacco: Yes Hx Alcohol Use: Yes Alcohol type: hard liquor alcohol intake frequency: a few times a month Hx Substance Use: No substance use type: does not use Physical Exam Vital Signs Last Vital Signs Temp 37 C 10/28/21 13:31 Pulse 78 10/28/21 13:31 Resp 18 10/28/21 13:31 BP 133/97 10/28/21 13:31 Pulse Ox 94 10/28/21 13:31 Testing Laboratory Results 10/28/21 05:49 10/28/21 05:49 Urine Color Yellow 10/27/21 10:19 Urine Appearance Clear (Clear) 10/27/21 10:19 Urine pH 5.5 (4.5-7.5) 10/27/21 10:19 Ur Specific [place] 1.023 (1.000-1.030) 10/27/21 10:19 Urine Protein Negative (Negative) 10/27/21 10:19 Urine Glucose (UA) Negative (Negative) 10/27/21 10:19 Urine Ketones Trace (Negative) H 10/27/21 10:19 Urine Nitrite Negative (Negative) 10/27/21 10:19 Ur Leukocyte Esterase Negative (Negative) 10/27/21 10:19 Blood Type A Negative 10/27/21 16:07 Antibody Screen NEGATIVE 10/27/21 16:07 Electrocardiogram Date: 10/27/21 [place] Electrocardiogram Report Signed Patient:LUCIA LEOS Admit Date:10/27/21 MR#:[id number] Att Phy:Isma Li D.O. Acct ID:[id number] [place] Phy:Loren Holm CRNP Date:1970 Fam Phy: Age:51 Location:3N Sex:M Room/Bed:N378 cc: ~ DICTATED BY:Philip Altamirano MD Test Reason : Blood Pressure : / mmHG Vent. Rate : 083 BPM Atrial Rate : 083 BPM P-R Int : 146 ms QRS Dur : 090 ms QT Int : 370 ms P-R-T Axes : 039 052 052 degrees QTc Int : 434 ms Normal sinus rhythm Low voltage QRS Borderline ECG When compared with ECG of 29-JAN-2017 20:18, No significant change was found Confirmed by Philip Altamirano ([id number]) on 10/27/2021 6:01:57 PM Referred By: REFERRED SELF Confirmed By:Juan F Altamirano Signed By: Chest X-Ray Date: 10/27/21 XR chest 1V portable HISTORY: 51 years-old Male pre-operative evaluation preoperative exam. No acute chest complaints. COMPARISON: 02/26/2020 TECHNIQUE: Portable AP view of the chest FINDINGS: Cardiomediastinal and hilar silhouettes are unchanged. There is no pneumothorax, pleural effusion, airspace consolidation or overt pulmonary edema. Bones of the chest appear grossly intact. Cervical spinal fusion hardware. IMPRESSION: No acute process. ACT 112: Negative or not required by law. The above report was generated using voice recognition software. It may contain grammatical, syntax or spelling errors. Electronically signed by: Chato Donald M.D. 10/27/2021 1:36 PM Echocardiogram Date: 04/22/20 EF: 60-65 LV Function: normal
[2021-10-28] MEDS ORDERED: EPINEPHrine INJ 1 MG/ML AMP ONE (13:54)
[2021-10-28] MEDS ORDERED: BUPIVACAINE 0.5 % 5 MG/1 ML MPF 30ML VIAL ONE (13:54)
[2021-10-28] MEDS ORDERED: ceFAZolin 330 MG/ML 1 GM VIAL ONE (13:54)
[2021-10-28] MEDS ORDERED: HYDROmorphone INJ 2 MG/ML SYR/VIAL ONE (14:32)
[2021-10-28] MEDS ORDERED: FLOSEAL HEMOSTATIC MATRIX 10ML TOP ONE (15:10)
--- NOTE | 2021-10-28 15:39 | Operative Report ---
Post Operative Report Pre & Post Diagnosis Operation Date: 10/28/21 07:00 Pre-Op Diagnosis: L2-L3 lumbar disc herniation with radiculopathy Post-Op Diagnosis: L2-L3 lumbar disc herniation with radiculopathy I identified the patient and participated in the time-out.: Yes Procedure Operation Date: 10/28/21 07:00 Actual Procedures #1 lumbar decompression with bilateral medial facetectomies and foraminotomies L1-L2 L2-L3. #2 posterior spinal fusion L2-L3. #3 placement posterior instrumentation L2-L3. #4 interbody fusion L2-L3. #5 placement of titanium 13 x 26 mm cage at L2-L3. #6 placement of locally harvested morselized autograft in the posterior gutters. #7 placement of I factor combined with V toss in the interbody space and posterior lateral gutters. Surgeon Isma Li, Application Consultant Diamond Bonner Estimated Blood Loss 100 Findings See Below The patient is 6 foot 1 inches tall weighing over 159 kg with a BMI in excess of 46. Patient's body habitus did contribute to significant technical difficulty required deepest retractors longus instruments in order to perform his procedure. This had at least 50% increased operative time. Specimens None Indications This is a 51-year-old male with a known foraminal disc herniation L2-L3. He is noting steady steady significant decline in strength affecting his right quadricep. He has significant radicular pain in association with this. In light of his progressive decline and losing his ability to stand and ambulate I recommended emergent decompression fusion. Description of Procedure Patient met with identified informed consent obtained. Patient was then taken to the operative suite underwent intubation placed in a prone position the Dyer table top Duane frame. All bony prominences well-padded eyes inspected to ensure no external pressure placed upon the. This point the lumbar spine was prepped and draped no sterile fashion. Sharp dissection with the assistance of Bovie cautery was performed down to and exposing the lamina and transverse processes of L2 and L3. From a caudal cephalad fashion complete laminectomy of L2 partial laminectomy L1 was performed occluding bilateral medial facetectomies and foraminotomies. Pedicle screws then placed in L2-L3 bilaterally with assistance of fluoroscopy and appropriate sized uli placed. Massive amounts of disc material including cartilaginous endplate were noted within the right neural foramen that migrated cephalad. The removed in their entirety to decompress the exiting L2 nerve root. I then performed a complete discectomy by way of a transforaminal approach on the right. The endplates were curetted to subcortical being bone and a 13 x 26 mm titanium cage filled with I factor tapped in position. The rods then compressed locked into final position bilaterally. The transverse processes of L2 and L3 burred to subcortical bleeding bone. I factor combined with V toss and locally harvested morselized autograft was placed in the posterior gutters. 15 round DANNY drain inserted. The incision was then closed with 1 Vicryl the fascia 2-0 Vicryl subcutaneously and 4 Monocryl for final skin closure. Steri-Strips dressings placed. Patient will continue PACU stable condition. Please note spinal cord monitoring visualized at the procedure no changes noted. Lastly Diamond Bonner was present at the entire surgeon while the patient positioning complex portions of the surgery and fascial closure. I attest to the content of the Intraoperative Record and any orders documented therein. Any exceptions are noted below.
--- NOTE | 2021-10-28 15:57 | Fluoroscopy Report ---
INTRAOPERATIVE RADIOGRAPHS CLINICAL HISTORY: L2-L3 spinal fusion. Fluoroscopy time: 15 seconds. FINDINGS: 2 spot fluoroscopic views of the lumbar spine are presented. There has been discectomy with laminectomy and posterior fusion in the lumbar spine, reportedly at L2-L3. Interpedicular screws are in place. The orthopedic hardware appears intact. IMPRESSION: Intraoperative images from lumbar spinal surgery as above. Electronically signed by: Scott Barahona M.D. 10/28/2021 3:56 PM
[2021-10-28] MEDS: fentaNYL citrate 100 MCG/2 ML VIAL IV PRN ×3 (16:00→16:15)
--- NOTE | 2021-10-28 16:22 | Anesthesiology Progress Note ---
Date of Service October 28, 2021 Anesthesia Post Procedure Vital Signs Vital Signs: Temp Pulse Pulse Resp BP Pulse Ox 10/28/21 16:10 65 17 142/96 H 96 10/28/21 16:00 68 17 131/91 99 10/28/21 15:53 36.3 C L 71 14 145/97 H 97 10/28/21 13:31 37 C 78 18 133/97 94 10/28/21 07:29 36.5 C 77 17 127/79 94 10/27/21 21:50 36.5 C 76 22 140/86 96 Pain Intensity Lower Back: Pain Intensity: 2 Transfer of Care Handoff Completed per policy Notes Mental Status: alert / awake / arousable Patient Amnestic to Procedure: Yes Nausea / Vomiting: adequately controlled Pain: adequately controlled Airway Patency, RR, SpO2: stable & adequate BP & HR: stable & adequate Hydration State: stable & adequate Anesthetic Complications: no major complications apparent and Pt Satisfied with anesthetic care
[2021-10-28] MEDS ORDERED: diphenhydrAMINE Capsule 25 MG CAP PO PRN (16:50)
[2021-10-28] MEDS ORDERED: METOCLOPRAMIDE HCL INJ 5 MG/ML 2 ML VIAL IV PRN (16:50)
[2021-10-28] MEDS ORDERED: bisacodyL 10 MG SUPP PR PRN (16:50)
[2021-10-28] MEDS ORDERED: ACETAMINOPHEN 500 MG TAB PO PRN (16:50)
[2021-10-28] MEDS ORDERED: ONDANSETRON 4 MG OD TAB PO PRN (16:50)
[2021-10-28] MEDS ORDERED: ACETAMINOPHEN 1,000 MG/100 ML VIAL IV PRN (16:50)
[2021-10-28] MEDS ORDERED: MAGNESIUM HYDROXIDE SUSP 30 ML UDC PO PRN (16:50)
[2021-10-28] MEDS ORDERED: traMADol HCL 50 MG TABLET PO PRN (16:50)
[2021-10-28] MEDS ORDERED: SOD PHOSPHATE/SOD BIPHOSPHATE ENEMA 132 ML BTL PR PRN (16:50)
[2021-10-28] MEDS ORDERED: NALOXONE HCL 0.4 MG/1 ML VIAL/CARP IV PRN (16:50)
[2021-10-28] MEDS ORDERED: hydrOXYzine HCl 25 MG TAB PO PRN (16:50)
[2021-10-28] MEDS ORDERED: ALUMINUM/MAGNESIUM SUSP 30 ML UDC PO PRN (16:50)
[2021-10-28] MEDS ORDERED: DO NOT ADMINISTER PNEUMOCOCCAL VACCINE PRN (16:50)
[2021-10-28] MEDS ORDERED: FAMOTIDINE 20 MG TAB PO PRN (16:50)
[2021-10-28] MEDS ORDERED: LORazepam 0.5 MG TAB PO PRN (16:50)
[2021-10-28] MEDS ORDERED: PROMETHAZINE HCL 12.5 MG in SODIUM CHLORIDE 0.9% 50 ML IV PRN (16:50)
[2021-10-28] MEDS ORDERED: DO NOT ADMINISTER FLU VACCINE PRN (16:50)
[2021-10-28] MEDS ORDERED: LORazepam 0.5 MG/1 ML VIAL IV PRN (16:50)
[2021-10-28] MEDS: KETOROLAC 30 MG/ML VIAL IV SCH ×2 (17:43→23:25)
[2021-10-28] MEDS: DOCUSATE SODIUM/SENNA 50/8.6MG TAB PO SCH (21:10)
[2021-10-28] MEDS: ceFAZolin 2000MG 2,000 MG/15 ML SYR IV SCH (22:31)
[2021-10-29] MEDS: oxyCODONE HCL IR 5 MG TAB (IMMEDIATE RELEASE) PO PRN ×3 (00:55→20:03)
[2021-10-29] MEDS: KETOROLAC 30 MG/ML VIAL IV SCH ×2 (05:37→11:44)
[2021-10-29] MEDS: ceFAZolin 2000MG 2,000 MG/15 ML SYR IV SCH (05:37)
[2021-10-29] MEDS: POLYETHYLENE (MIRALAX) 17 GM PACK PO SCH ×3 (05:38→17:00)
[2021-10-29 06:43] LABS: Basophils # (auto) 0.01 K/uL (0-0.2); Basophils % (auto) 0.1 %; Hematocrit (blood only) 44.4 % (42-52); Hemoglobin 14.6 g/dL (14.0-18.0); Immature Granulocytes # (auto) 0.06 K/uL (0.00-0.02); Immature Granulocytes % (auto) 0.4 %; Lymphocytes # (auto) 0.82 K/uL (1.2-3.4); Lymphocytes % (auto) 5.5 %; Mean Corpuscular Hemoglobin 32.2 pg (25-34); Mean Corpuscular Hgb Conc 32.9 g/dL (32-36); Mean Corpuscular Volume 97.8 fL (80-100); Mean Platelet Volume 9.8 fL (7.4-10.4); Monocytes % (auto) 6.7 %; Neutrophils # (auto) 13.11 K/uL (1.4-6.5); Neutrophils % (auto) 87.3 %; Platelet Count 234 K/uL (130-400); RDW Coefficient of Variation 14.3 % (11.5-14.5); RDW Standard Deviation 50.4 fL (36.4-46.3); Red Blood Count 4.54 M/uL (4.7-6.1)
[2021-10-29 07:04] LABS: Albumin Globulin Ratio 1.4 (0.9-2); Albumin Level 3.7 gm/dl (3.4-5.0); BUN Creatinine Ratio 15.7 (10-20); Bilirubin,Total 0.8 mg/dl (0.2-1.0); Calcium 8.5 mg/dl (8.5-10.1); Creatinine Clr Calc Pharmacy 126.4 ml/min; Est GFR (Non-African American) 78.5 ml/min; Globulin 2.6 gm/dl (2.5-4.0); Potassium 4.2 mmol/L (3.5-5.1); Total Protein 6.3 gm/dl (6.0-8.3)
[2021-10-29] MEDS: dexAMETHasone 6 MG in SYRINGE 0 ML IV SCH (07:45)
[2021-10-29] MEDS: FAMOTIDINE 20 MG in SYRINGE 3 ML IV SCH (07:45)
[2021-10-29] MEDS: NICOTINE 21 MG/24 HR TDSY TD SCH (07:46)
[2021-10-29] MEDS: FOLIC ACID 400 MCG TAB PO SCH (07:46)
--- NOTE | 2021-10-29 10:19 | Orthopedic Progress Note ---
Date of Service October 29, 2021 Assessment & Plan (1) Lumbar disc herniation with radiculopathy: Plan: At this time continue physical therapy monitor his DANNY output hopefully discharge home in the next few days. Admission and Anticipated Discharge Date Admission Date: October 27, 2021 Subjective Back pain controlled leg pain markedly improved Physical Exam Physical Exam: Patient is in the chair at the bedside. Appears comfortable. Skin strength testing. Results & Data ([facility]) Vital Signs (Past 12 Hours) Vital Signs Temp Pulse Resp BP Pulse Ox 10/29/21 07:28 36.4 C L 97 H 17 124/79 93 10/29/21 03:11 37.1 C 91 H 16 125/84 90 10/28/21 23:02 37.0 C 100 H 16 139/87 92
[2021-10-29] MEDS: DOCUSATE SODIUM/SENNA 50/8.6MG TAB PO SCH (20:12)
[2021-10-30] MEDS: oxyCODONE HCL IR 5 MG TAB (IMMEDIATE RELEASE) PO PRN ×3 (00:58→09:18)
[2021-10-30 08:01] LABS: Basophils # (auto) 0.01 K/uL (0-0.2); Basophils % (auto) 0.1 %; Hematocrit (blood only) 41.5 % (42-52); Hemoglobin 13.5 g/dL (14.0-18.0); Immature Granulocytes # (auto) 0.06 K/uL (0.00-0.02); Immature Granulocytes % (auto) 0.4 %; Lymphocytes # (auto) 1.61 K/uL (1.2-3.4); Lymphocytes % (auto) 11.4 %; Mean Corpuscular Hemoglobin 32.2 pg (25-34); Mean Corpuscular Hgb Conc 32.5 g/dL (32-36); Mean Platelet Volume 9.8 fL (7.4-10.4); Monocytes # (auto) 1.68 K/uL (0.11-0.59); Monocytes % (auto) 11.9 %; Neutrophils % (auto) 76.2 %; Platelet Count 246 K/uL (130-400); RDW Standard Deviation 54.2 fL (36.4-46.3); Red Blood Count 4.19 M/uL (4.7-6.1); White Blood Count 14.16 K/uL (4.8-10.8)
[2021-10-30] MEDS: NICOTINE 21 MG/24 HR TDSY TD SCH (08:14)
[2021-10-30] MEDS: FOLIC ACID 400 MCG TAB PO SCH (08:14)
[2021-10-30] MEDS: FAMOTIDINE 20 MG in SYRINGE 3 ML IV SCH (08:15)
[2021-10-30] MEDS: dexAMETHasone 6 MG in SYRINGE 0 ML IV SCH (08:15)
[2021-10-30 08:32] LABS: Albumin Globulin Ratio 1.4 (0.9-2); Albumin Level 3.7 gm/dl (3.4-5.0); Bilirubin,Total 0.8 mg/dl (0.2-1.0); Calcium 8.4 mg/dl (8.5-10.1); Creatinine Clr Calc Pharmacy 153.4 ml/min; Est GFR (African American) 113.9 ml/min; Est GFR (Non-African American) 98.3 ml/min; Globulin 2.6 gm/dl (2.5-4.0); Potassium 4.3 mmol/L (3.5-5.1); Total Protein 6.3 gm/dl (6.0-8.3)
--- NOTE | 2021-10-30 10:47 | Discharge Summary ---
Date of Service October 30, 2021 Admission HPI Per Admitting Provider This is a 51-year-old male well-known to me that is noting a significant steady decline in his ability to ambulate and function of the right quadricep. He was seen my office several weeks ago diagnosed with a far lateral foraminal disc herniation L2-L3. We did attempt a consultation with interventional pain management. However in light of the disc herniation and foraminal compression he was felt not to be a candidate for injection therapy. A course of oral steroids provided very little relief. He now notes continued progressive deficit to the right quadricep with difficulty ambulating ascending and descen ding stairs. There is concomitant severe radiculopathy in association with this. Left lower extremity is asymptomatic. Principal Diagnosis Lumbar disc condition with radiculopathy Discharge Data Allergies Allergy/AdvReac Type Severity Reaction Status Date / Time latex Allergy Mild RASH Verified 10/27/21 09:49 hydrocodone AdvReac Mild GI SYMPTOMS Verified 10/27/21 09:49 Consultations 10/27/21 08:28 ED Decision to Admit Stat 10/27/21 12:37 Consult Internal Medicine Routine Procedures Performed Operation Date: 10/28/21 07:00 Actual Procedures p L2-L3 Decompression Fusion with Spinal Cord Monitoring(Not Applicable) - Isma Li DO Ordered Studies 10/28/21 12:00 FL lumbar spine 2-3V Routine Hospital Course (1) Lumbar disc herniation with radiculopathy: Patient was admitted with severe radiculopathy leg weakness underwent emergent decompression fusion Jerry gambino was taken to orthopedic for postop labor postop day 1 leg symptoms are markedly improved strength improving. Tolerating physical therapy progressed to postop day #2 DANNY drain decreasing appropriately. Pain controlled. Subsequent discharge home. Discharge orders instructions from the chart for further review. Total Time Total Time Spent Total Time Spent (In Minutes): 20 minutes Discharge Plan Discharge Items Patient Disposition: Home - Self-Care Reason For Visit: LUMBAR RADICULOPATHY Discharge Diagnosis: Lumbar disc herniation with radiculopathy Activity: As commented below Non-emergency contact: Primary Care Provider Call non-emergency contact if: you have any medication questions Follow-up/Referrals: Isma Li DO [Surgeon] - 11/11/21 12:00 pm (APPOINTMENT WITH CHIKA DELACRUZ PA-C) Loren Holm CRNP [Primary Care Provider] - Diet: Regular Addtl Attending Provider Instructions: ACTIVITY RECOMMENDATIONS: SELF CARE INSTRUCTIONS AFTER THORACIC/LUMBAR FUSIONS 1. You may walk to your tolerance. It is good exercise for your legs and back. Expect some back and intermittent leg aches and pains. 2. You may perform "counter-top" level activities (make a sandwich, mimi with a project, etc.). 3. No bending or lifting of more than 10 pounds or back twisting of any nature (roll like a log when turning in bed). 4. You may ride in a car for 20-30 minutes at a time. No driving until after your first visit with your doctor. 5. Frequent changes of position and restricting sitting to 30 minutes at a time will help limit the amount of back spasms and stiffness you may experience. 6. You may discontinue the use of ambulatory aids (cane, crutches, etc.) once your strength and confidence allow. 7. You may general manager in training the shower and let water strike your incision when you arrive home at least once daily. Do not take a tub bath, sit in a hot tub or go into a swimming pool until after your first recheck in the office. SPECIAL CARE INSTRUCTIONS: VERY IMPORTANT TO READ AND REVIEW A. Your surgical incision has been closed with a cosmetic suture under the skin that will dissolve in about 6 weeks. In 14 days, you can use a pair of clean scissors and cut the suture that is left outside of the skin at the ends of your incision. 1. The small skin tapes can be removed 7 days after surgery if they have not fallen off by that point. 2. You may keep the wound open to air as much as possible to promote healing after post-op day number 5 unless told otherwise by your doctor. 3. If you think the wound looks like it is becoming infected (redness or worsening drainage) and/or you are experiencing fever, chill or worsening back pain and muscle spasms, contact the office so that we may evaluate you as soon as possible. B. Complications are uncommon, but please contact us if you have any signs or symptoms of: 1. wound infection (fever higher than 102.5 degrees F, redness, separation of wound, drainage, or increasing pain from the incision) 2. blood clots in legs (pain, swelling, redness and warmth in legs) 3. urinary tract infection (fever higher than 102.5 degrees F, burning upon urination or increased frequency of urination) 4. nerve problems (inability to walk on your toes or heels, numbness, loss of bowel or bladder control) 5. any other symptoms that concern you C. Please call the office at if you have any concerns or questions about your operation or recovery. D. No smoking! Smoking drastically decreases the chance of a solid fusion. E. Do not take any anti-inflammatory medications (Indocin, Advil, Motrin, Aspirin, Naprosyn, etc.) as these may inhibit the chance of a solid fusion. Tylenol is okay to take for pain. MANAGING PAIN AFTER SPINAL SURGERY 1. Narcotic medication is intended for short-term use and will be provided for surgical pain. Surgical pain usually lasts for a period of 4-6 weeks. Narcotic medication includes Percocet, Vicodin, Darvocet, Tylenol #3 or Lortab. 2. Longer-term pain is more appropriately treated with non-narcotic medication such as Tylenol ES. 3. Muscle spasm is not appropriately treated with narcotics. Muscle relaxers such as Soma, Flexeril or Skelaxin can be used along with Tylenol ES. 4. Remember that we all live with some "aches and pains". This is not unusual or uncommon after an injury or as we get older. a. Back pain is expected and may include muscle spasms for 4 to 6 weeks after surgery. The pain should gradually improve. If the pain worsens for no apparent reason, please contact the office. b. Intermittent leg pain may also be experienced and should not be concerned about unless it worsens for no apparent reason. If so, please contact the office. 5. We will provide appropriate medication within the normal guidelines of their prescribed use. We will also be very cautious and aware of potential abuse and extended duration of patients' medication needs. a. Pain medications are for your comfort and to assist with sleep and rest so that the tissue can heal. They are not provided in order to return to normal activity and should not be used through the day. To do so or worsening pain at night can result from ongoing tissue damage and development of tolerance to the prescribed medicine. 6. Please allow 2-3 days to process refills. Prescriptions will not be mailed but must be picked up at the office. FOLLOW UP VISIT: Keep your scheduled follow-up appointment. Any questions, please call the office at . Pending Studies at Discharge: No Stand-Alone Forms: My [facility], Smoking Cessation Medications and DC Order Prescriptions: New tramadol 50 mg tablet 50 mg PO Q6H PRN (Reason: pain, moderate) Qty: 30 RF: 0 oxycodone 5 mg tablet 5 mg PO Q6H PRN (Reason: pain, severe) Qty: 30 RF: 0 Continued olmesartan 40 mg tablet 40 mg PO QAM RF: 0 Discharge Orders: Discharge Order (Routine); Ordered 10/30/21 Ordered By: sIma Miguel/Other Patient Handouts: Preventing Deep Vein Thrombosis Admission Data Admit Date/Time: 10/27/21 09:16 Attending Provider: Isma Li Admit Provider: Isma Li Primary Care Provider: Loren Holm Other Providers: Isma Li Other Interventions: Discharge Summary Assessment (RN) Last Done: 10/30/21 10:07
== END 2021-10-30 12:44 | disposition home or self-care (01) | DRG 454 ==
LOC: ED 07:48 → 3N 09:16